=== PATIENT | male | born 1965 | race Caucasian/White ===

== ENCOUNTER 2020-08-30 12:23 | Day surgery (SDC) | payer OTHER ==
[~2020-08-30 12:23] MED LIST: Lactated Ringers 1,000 ML IV SCH; Lidocaine 1%/Sod Bicarbonate in NS 8.4% 1 ML Syringe IDERM PRN; Sodium Chloride 0.9% 10 ML Syringe FLUSH PRN
--- NOTE | 2020-08-30 12:30 | PCM.PREANE ---
Preanesthetic Assessment - Procedure Proposed Procedure: Open Right Inguinal hernia repair with Mesh. - Anesthesia/Transfusion/Family Hx Anesthesia History: Prior Anesthesia Without Reaction Family History of Anesthesia Reaction: No Transfusion History: No Prior Transfusion(s) Intubation History: Unknown - Review of Systems General: No Symptoms Pulmonary: No Symptoms (ETOH: 2 glasses/month) Cardiovascular: No Symptoms (History of HTN/now wnl; elevated cholesterol) Gastrointestinal: No Symptoms Neurological: No Symptoms Other: Reports: None - Physical Assessment NPO Status Date: 08/29/20 NPO Status Time: 20:00 Vital Signs: HR:84 Sat:96% B/P:118/77 Temp:98 Resp:17 Height: 1.78 m Weight: 77 kg ASA Class: 2 Mental Status: Alert & Oriented x3 Airway Class: Mallampati = 2 Dentition: Reports: Normal Dentition, Caries Thyro-Mental Finger Breadths: 3 Mouth Opening Finger Breadths: 3 ROM/Head Extension: Full Lungs: Clear to Auscultation Cardiovascular: Regular Rate, Regular Rhythm, No Murmurs - Allergies Allergies/Adverse Reactions: Allergies Allergy/AdvReac Type Severity Reaction Status Date / Time No Known Allergies Allergy Verified 08/29/20 12:54 - Anesthesia Plan Pre-Op Medication Ordered: None - Acknowledgements Anesthesia Type Planned: General Anesthesia, MAC Pt an Appropriate Candidate for the Planned Anesthesia: Yes Alternatives and Risks of Anesthesia Discussed w Pt/Guardian: Yes Pt/Guardian Understands and Agrees with Anesthesia Plan: Yes PreAnesthesia Questionnaire HEENT History: Reports: None Cardiovascular History: Reports: High Cholesterol, Hypertension Respiratory History: Reports: None Gastrointestinal History: Reports: Other (See Below) Other Gastrointestinal History: right inguinal hernia Genitourinary History: Reports: Other (See Below) Other Genitourinary History: erectile dysfunction, frequency [employer] History: Reports: None Musculoskeletal History: Reports: None Neurological History: Reports: None Psychiatric History: Reports: None Endocrine/Metabolic History: Reports: None Hematologic History: Reports: None Immunologic History: Reports: None Oncologic (Cancer) History: Reports: None Dermatologic History: Reports: None - Infectious Disease History Infectious Disease History: Reports: None - Past Surgical History Head Surgeries/Procedures: Reports: None HEENT Surgical History: Reports: None Cardiovascular Surgical History: Reports: None Respiratory Surgical History: Reports: None GI Surgical History: Reports: None Female Surgical History: Reports: None Male Surgical History: Reports: None Endocrine Surgical History: Reports: None Neurological Surgical History: Reports: None Musculoskeletal Surgical History: Reports: Other (See Below) Other Musculoskeletal Surgeries/Procedures:: lower leg fracture with repair, wrist surgery Oncologic Surgical History: Reports: None Dermatological Surgical History: Reports: None - SUBSTANCE USE Tobacco Use Status *Q: Never Tobacco User Recreational Drug Use History: No - HOME MEDS Home Medications: Home Meds atorvaSTATin [Lipitor] 40 mg PO DAILY 08/29/20 [History] tadalafiL [Tadalafil] 20 mg PO ASDIRECTED PRN 08/29/20 [History] - CURRENT (IN HOUSE) MEDS Current Meds: Current Medications Lactated Ringer's (Ringers, Lactated) 1,000 mls @ 125 mls/hr IV ASDIRECTED MAI Stop: 08/30/20 23:00 Lidocaine/Sodium Bicarbonate (Buffered Lidocaine 1% In Ns 8.4%) 0.25 ml IDERM ONETIME PRN PRN Reason: Prior to IV Start Stop: 08/30/20 18:00 Sodium Chloride (Saline Flush) 10 ml FLUSH ASDIRECTED PRN PRN Reason: Keep Vein Open Stop: 08/30/20 18:00
[2020-08-30] MEDS ORDERED: Lactated Ringers 1,000 ML ONE (13:03)
[2020-08-30] MEDS ORDERED: Dexamethasone 4 MG/ML 5 ML MDV ONE (13:03)
[2020-08-30] MEDS ORDERED: Midazolam 1 MG/ML 2 ML SDV ONE ×2 (13:03→15:02)
[2020-08-30] MEDS ORDERED: Ondansetron 4 MG/2 ML SDV ONE ×2 (13:03→15:21)
[2020-08-30] MEDS ORDERED: Lidocaine 1% 4 ML ONE (13:03)
[2020-08-30] MEDS ORDERED: ceFAZolin 1 GM Vial ONE (13:03)
[2020-08-30] MEDS ORDERED: Ketorolac 30 MG/ML SDV ONE (13:03)
[2020-08-30] MEDS ORDERED: Propofol 200 MG/20 ML SDV ONE ×3 (13:03→15:58)
[2020-08-30] MEDS ORDERED: fentaNYL 250 MCG/5 ML SDV ONE (13:04)
[2020-08-30] MEDS: Bupivacaine 0.5%/EPINEPHrine 1:200,000 50 ML MDV ONE ×2 (14:44→15:12)
--- NOTE | 2020-08-30 16:34 | PCM48HPAN ---
Post Anesthesia Note - EVALUATION WITHIN 48HRS OF ANESTHETIC Vital Signs in Normal Range: Yes Patient Participated in Evaluation: Yes Respiratory Function Stable: Yes Airway Patent: Yes Cardiovascular Function Stable: Yes Hydration Status Stable: Yes Pain Control Satisfactory: Yes Nausea and Vomiting Control Satisfactory: Yes Mental Status Recovered: Yes Vital Signs: Last Vital Signs Temp 98.2 F 08/30/20 16:25 Pulse 84 08/30/20 16:25 Resp 16 08/30/20 16:25 BP 97/62 08/30/20 16:25 Pulse Ox 95 08/30/20 16:25
--- NOTE | 2020-08-30 16:37 | PCM.PRNOTE ---
- Free Text/Narrative Note: Operative Report Date: 08/30/2020 Operation: open right inguinal hernia repair with mesh Surgeon: Malvin Quintanilla MD EBL: minimal Antibiotic: 2 g ancef IV pre-op Local anesthetic: 40 cc 0.5% marcaine with epinephrine Findings: small right indirect inguinal hernia Detailed Report: The patient was taken to the operating room and placed in supine position. Monitored anesthesia care was initiated. Timeout was performed, and abdominal hair was clipped. The abdomen was prepped and draped in usual sterile fashion. The projection of the inguinal ligament was marked, and local anesthetic was injected along the planned incision site. An oblique 7 cm incision overlying the projection of the inguinal ligament was made with a knife. Dissection was carried down through subcutaneous tissue and Maulik's fascia. Innominate fascia was swept away from the external oblique aponeurosis. The external ring was palpable. 10 cc of local anesthetic was then injected just deep to the roof of the canal. A small stab incision was made in line with the aponeurotic fibers using a 15 blade scalpel, and Metzenbaum scissors were used to pass proximally and distally just deep to the aponeurosis, the cord structures from the overlying fibers. The roof of the canal was then opened with scissors ext ending up towards the anterior superior iliac spine and down through the external ring. Blunt dissection was then performed to free of the spermatic cord. A [place] drain was passed around the cord structures distally and secured, and additional blunt dissection proceeded. Cremasteric fibers were from the cord. Eventually, the hernia sac was evident, in expected position anterior lateral to the cord structures. The sac was empty, and relatively small and thin-walled. Once adequately from the cord structures, the sac was opened in order to confirm it was indeed the sac. The sac was ligated with Vicryl suture and the distal portion of the sac was amputated. This was reduced back into the abdomen, and preparations were made for mesh placement. A 9 x 12 cm piece of progrip mesh was cut to size and shape, and an anchoring Prolene stitch was placed at the inferomedial aspect of the mesh, securing it to Ollie's ligament. There was good medial and inferior overlap of 2 cm at this site. The lateral portion of the mesh was then secured to the shelving edge of the inguinal ligament with running Prolene suture. A slit was made in the mesh in order to allow passage of the spermatic cord. The external ring was recreated by stitching the 2 leaflets of mesh together just superior to the passage of the cord, with enough space to permit passage of the tip of the finger, ensuring that there was no strangulation. The rest of the mesh was laid flat along the floor of the inguinal canal. The external oblique leaflets were then closed with running Vicryl suture. Maulik's fascia was closed over top of this with running Vicryl suture as well. An additional 10 cc of local anesthetic was injected for regional block near the ASIS. Skin was closed with running 4-0 Vicryl subcuticular suture. The wound was dressed with Dermabond. The patient tolerated the procedure well.
== END 2020-08-30 17:10 | disposition home or self-care (01) ==
LOC: JD.SDS 12:23
PROVIDERS: ATTEND Surgery
DX: K40.90 Unilateral inguinal hernia, without obstruction or gangrene, not specified as recurrent (principal); I10 Essential (primary) hypertension; N52.9 Male erectile dysfunction, unspecified; E78.2 Mixed hyperlipidemia; Z79.899 Other long term (current) drug therapy; Z98.890 Other specified postprocedural states
CPT/HCPCS: 49505; J0690; J1100; J1885; J2250; J2405; J2704; J3010; J3490; J7120; 00830; C1781